=== PATIENT | male | born 1980 ===

== ENCOUNTER 2017-06-29 13:35 | Emergency (ER) | payer MEDICAID, OTHER ==
--- NOTE | 2017-06-29 13:55 | EDM.PDOC ---
ED HPI GENERAL MEDICAL PROBLEM - General Chief Complaint: Upper Extremity Injury/Pain Stated Complaint: RT ELBOW INJURY Time Seen by Provider: 06/29/17 13:55 Source of Information: Reports: Patient - History of Present Illness INITIAL COMMENTS - FREE TEXT/NARRATIVE: Patient is here for evaluation of a right elbow injury. He states that he was taking his dog about approximately one hour prior to arrival at ER when he was lighting a cigarette and not paying attention and he tripped over his small dog that he states that he landed with most of his weight on his right elbow. Patient is able to move his shoulder and elbow on the right side but does have pain with moving the elbow. He is having moderate right elbow pain and significant swelling on the side. Patient does have history of osteogenesis imperfecta as well; frequent fractures more so as a child but he has had several fractures in the past few years. Denies any history of bleeding or clotting disorders. Not on any medication on a daily basis. Right Elbow Pain Score (Numeric/FACES): 3 - Related Data Allergies Allergy/AdvReac Type Severity Reaction Status Date / Time codeine Allergy Other Verified 06/29/17 13:48 Home Meds: Home Meds traMADol HCl [Tramadol HCl] 50 mg PO Q6H PRN #30 tablet 06/29/17 [Rx] Past Medical History Musculoskeletal History: Reports: Other (See Below) Other Musculoskeletal History: osteogenesis- imperfecta - Past Surgical History Musculoskeletal Surgical History: Reports: Other (See Below) Other Musculoskeletal Surgeries/Procedures:: right elbow surgery Social & Family History - Tobacco Use Smoking Status *Q: Current Every Day Smoker Years of Tobacco use: 20 Packs/Tins Daily: 1 - Caffeine Use Caffeine Use: Reports: Coffee, Energy Drinks, Soda - Recreational Drug Use Recreational Drug Type: Reports: Marijuana/Hashish Other Recreational Drug Type: socially Review of Systems - Review of Systems Review Of Systems: See Below Constitutional: Reports: No Symptoms Musculoskeletal: Reports: Joint Pain, Joint Swelling (Right elbow pain and swelling.) Skin: Denies: Erythema, Change in Color Neurological: Denies: Numbness, Paresthesia, Weakness Psychiatric: Reports: No Symptoms ED EXAM, GENERAL - Physical Exam Exam: See Below Exam Limited By: No Limitations General Appearance: Alert, WD/WN, No Apparent Distress Cardiovascular: Other (Capillary refill less than 2 seconds on the right upper extremity.) Peripheral Pulses: 2+: Radial (R) Extremities: Limited Range of Motion (Right elbow), Other (Right shoulder/wrist with normal exam. Right elbow with significant posterior swelling, approximately the size of a tennis ball. He does have limited range of motion of his right elbow due to pain. No ecchymosis or deformity noted.) Neurological: Alert, Oriented, No Motor/Sensory Deficits Psychiatric: Normal Affect, Normal Mood Skin Exam: Warm, Dry, Intact. No: Ecchymosis, Erythema Course - Vital Signs Last Recorded V/S: Last Vital Signs Temp 96.9 F 06/29/17 13:53 Pulse 84 06/29/17 13:53 Resp 20 06/29/17 13:53 BP 133/93 H 06/29/17 13:53 Pulse Ox 98 06/29/17 13:53 - Orders/Labs/Meds Orders: Active Orders 24 hr Category Date Time Status Elbow Min 3V Rt [CR] Stat Exams 06/29/17 14:04 Taken Meds: Medications Discontinued Medications Generic Name Dose Route Start Last Admin Trade Name Aide PRN Reason Stop Dose Admin Ibuprofen 600 mg 06/29/17 14:04 06/29/17 14:12 Motrin PO 06/29/17 14:05 600 mg ONETIME ONE Administration - Re-Assessments/Exams Free Text/Narrative Re-Assessment/Exam: Injury to right elbow with significant posterior swelling/fluid effusion. Patient declines pain medication as he does not tolerate this well, agreeable to ibuprofen. Will get an x-ray of his right elbow. 06/29/17 14:10 Olecranon process significantly. Discussed with Dr. Kim, per his recommendation patient was placed in a long-arm splint and a sling. He will call Saturday morning and to be seen and likely schedule surgery to repair this. Patient was initially placed in splint at 90, he did try to extend elbow repeatedly. Patient was advised to continue to hold his arm at a 90 angle until splint hardened. Patient was also placed in a shoulder sling. Patient hesitant to take pain medication as he has not tolerated these well previously patient was given prescription for tramadol, continue Tylenol as well. Patient advised to avoid NSAIDs due to likely upcoming surgery. 06/29/17 17:59 Departure - Departure Time of Disposition: 14:54 Disposition: Home, Self-Care 01 Condition: Fair Clinical Impression: Fracture of ulna Qualifiers: Encounter type: initial encounter Fracture type: closed Fracture alignment: displaced - Discharge Information Prescriptions: traMADol HCl [Tramadol HCl] 50 mg PO Q6H PRN #30 tablet PRN Reason: Pain Instructions: Ulnar Fracture Referrals: PCP,None [Primary Care Provider] - Forms: ED Department Discharge Additional Instructions: Elevate as much as possible. Ice 15 minutes every 1-2 hours. You may take Tylenol as needed for pain, avoid aspirin or Aleve or ibuprofen. You may take the tramadol once every 6 hours. Follow-up with Dr. Kim/orthopedics on Saturday. You may call to schedule this at [phone]. - My Orders Last 24 Hours: My Active Orders 06/29/17 14:04 Elbow Min 3V Rt [CR] Stat - Assessment/Plan Last 24 Hours: My Active Orders 06/29/17 14:04 Elbow Min 3V Rt [CR] Stat
[2017-06-29] MEDS ORDERED: Ibuprofen 600 MG Tab PO ONE (14:04)
--- NOTE | 2017-07-01 07:25 | CR ---
Right elbow: Four views of the right elbow were obtained. Comparison: No prior elbow exam. Soft tissue swelling is identified. Fracture is identified within the olecranon process with displacement. Deformity of the radial head is seen compatible with old injury. No additional bony abnormality is seen. There is a metallic foreign body projected within the soft tissues of the distal upper extremity. Impression: 1. Displaced olecranon process fracture with soft tissue swelling. 2. Deformity of the radial head as well as metallic foreign body as described above. Diagnostic code #3
== END 2017-06-29 15:05 | disposition home or self-care (01) ==
LOC: JD.ED 13:35
DX: S52.021A Displaced fracture of olecranon process without intraarticular extension of right ulna, initial encounter for closed fracture (principal); F17.210 Nicotine dependence, cigarettes, uncomplicated; Z88.5 Allergy status to narcotic agent; W01.0XXA Fall on same level from slipping, tripping and stumbling without subsequent striking against object, initial encounter
CPT/HCPCS: 29105; 73080; 99284; A9270; 29125; 99283

== ENCOUNTER 2017-07-04 07:58 | Day surgery (SDC) | payer MEDICAID, OTHER ==
[~2017-07-04 07:58] MED LIST: Dexamethasone 4 MG/ML 5 ML MDV ONE; Lactated Ringers 1,000 ML IV SCH; Lidocaine 1% 4 ML ONE; Lidocaine 1%/Sod Bicarbonate in NS 8.4% 1 ML Syringe IV PRN; Midazolam 1 MG/ML 2 ML SDV ONE; Ondansetron 4 MG/2 ML SDV ONE; Propofol 200 MG/20 ML SDV ONE; Rocuronium 50 MG/5 ML Vial ONE; Sodium Chloride 0.9% 10 ML Syringe FLUSH PRN; ceFAZolin 1 GM Vial ONE; fentaNYL 250 MCG/5 ML SDV ONE
[2017-07-04] MEDS ORDERED: Ondansetron 4 MG/2 ML SDV IVPUSH PRN ×2 (08:13→10:34)
[2017-07-04] MEDS ORDERED: Ketorolac 30 MG/ML SDV IVPUSH PRN (08:13)
[2017-07-04] MEDS ORDERED: traMADol 50 MG Tab PO PRN (08:13)
--- NOTE | 2017-07-04 08:44 | PCM.PREANE ---
Preanesthetic Assessment - Procedure Proposed Procedure: ORIF right olecranon fx - Anesthesia/Transfusion/Family Hx Anesthesia History: Prior Anesthesia Without Reaction Family History of Anesthesia Reaction: No Transfusion History: No Prior Transfusion(s) - Review of Systems General: No Symptoms Pulmonary: No Symptoms Cardiovascular: No Symptoms Gastrointestinal: No Symptoms Neurological: No Symptoms Other: Reports: None - Physical Assessment NPO Status Date: 07/03/17 NPO Status Time: 23:45 O2 Sat by Pulse Oximetry: 99 Respiratory Rate: 16 Vital Signs: Last Vital Signs Temp 36.8 C 07/04/17 08:00 Pulse 91 07/04/17 08:00 Resp 16 07/04/17 08:00 BP 114/71 07/04/17 08:00 Pulse Ox 99 07/04/17 08:00 Height: 1.73 m Weight: 57.153 kg ASA Class: 2 Mental Status: Alert & Oriented x3 Airway Class: Mallampati = 1 Dentition: Reports: Normal Dentition Thyro-Mental Finger Breadths: 3 Mouth Opening Finger Breadths: 3 ROM/Head Extension: Full Lungs: Clear to Auscultation, Normal Respiratory Effort Cardiovascular: Regular Rate, Regular Rhythm - Allergies Allergies/Adverse Reactions: Allergies Allergy/AdvReac Type Severity Reaction Status Date / Time codeine Allergy Other Verified 07/03/17 15:43 hydrocodone Allergy Cannot Verified 07/03/17 15:43 Remember - Blood Blood Available: No Product(s) Available: None - Anesthesia Plan Pre-Op Medication Ordered: None - Acknowledgements Anesthesia Type Planned: General Anesthesia Pt an Appropriate Candidate for the Planned Anesthesia: Yes Alternatives and Risks of Anesthesia Discussed w Pt/Guardian: Yes Pt/Guardian Understands and Agrees with Anesthesia Plan: Yes PreAnesthesia Questionnaire - Past Health History Medical/Surgical History: Denies Medical/Surgical History Musculoskeletal History: Reports: Other (See Below) Other Musculoskeletal History: osteogenesis- imperfecta - Past Surgical History Musculoskeletal Surgical History: Reports: Other (See Below) Other Musculoskeletal Surgeries/Procedures:: right elbow surgery - SUBSTANCE USE Smoking Status *Q: Current Every Day Smoker (1ppd for 20 years) Tobacco Use Within Last Twelve Months: Cigarettes Second Hand Smoke Exposure: No Recreational Drug Use History: No Recreational Drug Type: Reports: Marijuana/Hashish (marijuana 07-02-17) - HOME MEDS Home Medications: Home Meds traMADol HCl [Tramadol HCl] 50 mg PO Q6H PRN #30 tablet 06/29/17 [Rx] - CURRENT (IN HOUSE) MEDS Current Meds: Current Medications Lactated Ringer's (Ringers, Lactated) 1,000 mls @ 125 mls/hr IV ASDIRECTED RONALDO Stop: 07/04/17 23:00 Last Admin: 07/04/17 08:20 Dose: 125 mls/hr Ketorolac Tromethamine (Toradol) 30 mg IVPUSH Q6H PRN PRN Reason: Pain (severe 7-10) Stop: 07/04/17 18:00 Lidocaine/Sodium Bicarbonate (Buffered Lidocaine 1% In Ns 8.4%) 0.25 ml IV ONETIME PRN PRN Reason: Prior to IV Start Stop: 07/04/17 18:00 Last Admin: 07/04/17 08:19 Dose: 0.25 ml Morphine Sulfate (Ms Contin) 15 mg PO ONETIME ONE Stop: 07/04/17 08:16 Ondansetron HCl (Zofran) 4 mg IVPUSH Q4H PRN PRN Reason: Nausea/Vomiting Stop: 07/04/17 18:00 Sodium Chloride (Saline Flush) 10 ml FLUSH ASDIRECTED PRN PRN Reason: Keep Vein Open Stop: 07/04/17 18:00 Tramadol HCl (Ultram) 50 mg PO Q6H PRN PRN Reason: Pain Stop: 07/04/17 18:00 Discontinued Medications Cefazolin Sodium (Ancef) Confirm Administered Dose 2 gm .ROUTE .STK-MED ONE Stop: 07/04/17 07:11 Dexamethasone (Dexamethasone) Confirm Administered Dose 20 mg .ROUTE .STK-MED ONE Stop: 07/04/17 07:08 Fentanyl (Sublimaze) Confirm Administered Dose 250 mcg .ROUTE .STK-MED ONE Stop: 07/04/17 07:05 Lidocaine HCl (Xylocaine-Mpf 1%) Confirm Administered Dose 4 mls @ as directed .ROUTE .STK-MED ONE Stop: 07/04/17 07:08 Iodine (Iodine 2% Mild Tincture) Confirm Administered Dose 30 ml .ROUTE .STK- MED ONE Stop: 07/04/17 07:56 Lidocaine/Epinephrine (Xylocaine 1% With Epinephrine 1:100,000) Confirm Administered Dose 20 ml .ROUTE .STK-MED ONE Stop: 07/04/17 07:56 Midazolam HCl (Versed 1 Mg/Ml) Confirm Administered Dose 2 mg .ROUTE .STK-MED ONE Stop: 07/04/17 07:05 Ondansetron HCl (Zofran) Confirm Administered Dose 4 mg .ROUTE .STK-MED ONE Stop: 07/04/17 07:08 Propofol (Diprivan 20 Ml) Confirm Administered Dose 200 mg .ROUTE .STK-MED ONE Stop: 07/04/17 07:05 Rocuronium [place] (Zemuron) Confirm Administered Dose 50 mg .ROUTE .STK-MED ONE Stop: 07/04/17 07:08
[2017-07-04] MEDS: Lidocaine 1% with EPINEPHrine 1:100,000 20 ML MDV ONE ×2 (09:47→10:40)
[2017-07-04] MEDS: Iodine/Sodium Iodide 2% Tincture 30 ML Bottle ONE ×2 (09:48→09:57)
[2017-07-04] MEDS ORDERED: HYDROmorphone 1 MG/ML Syringe ONE (09:57)
[2017-07-04] MEDS ORDERED: Ketamine 500 mg/10 ML MDV ONE (10:10)
[2017-07-04] MEDS ORDERED: Labetalol 100 MG/20 ML MDV ONE (10:33)
[2017-07-04] MEDS ORDERED: HYDROmorphone 0.5 MG/0.5 ML Syringe IVPUSH PRN (10:34)
[2017-07-04] MEDS ORDERED: fentaNYL 100 MCG/2 ML SDV IVPUSH PRN (10:34)
[2017-07-04] MEDS ORDERED: diphenhydrAMINE 50 MG/ML SDV IVPUSH PRN (10:34)
[2017-07-04] MEDS ORDERED: Meperidine PF 50 MG/ML Syringe IVPUSH PRN (10:34)
[2017-07-04] MEDS ORDERED: Neostigmine Methylsulfate 10 MG/10 ML MDV ONE (10:55)
--- NOTE | 2017-07-04 11:09 | PCM.POSTAN ---
POST ANESTHESIA ASSESSMENT - MENTAL STATUS Mental Status: Alert, Oriented - VITAL SIGNS Pulse Rate: 89 SaO2: 98 Resp Rate: 10 Blood Pressure: 136/90 Temperature: 37.5 C - RESPIRATORY Respiratory Status: Respiratory Rate WNL, Airway Patent, O2 Saturation Stable, Supplemental Oxygen - CARDIOVASCULAR CV Status: Pulse Rate WNL, Blood Pressure Stable - GASTROINTESTINAL GI Status: No Symptoms - PAIN Pain Score: 0 - POST OP HYDRATION Hydration Status: Adequate & Stable
[2017-07-04] MEDS ORDERED: Morphine 15 MG Tab.ER PO ONE (11:45)
--- NOTE | 2017-07-04 11:49 | CR ---
Right elbow: Multiple fluoroscopic spot views were obtained utilizing C-arm device in the operating room. Comparison: Previous right elbow study of 06/29/17. Previously described displaced olecranon process fracture shows reduction. Orthopedic hardware is seen on final films affixing the fracture. Fluoroscopy time given as 61.2 seconds. Impression: 1. Reduction and fixation of previously displaced olecranon process fracture. Diagnostic code #2
--- NOTE | 2017-07-04 14:02 | OR ---
DATE OF OPERATION: 07/04/2017 SURGEON: Kirit Quintana MD PREOPERATIVE DIAGNOSIS: 1. Displaced right olecranon fracture. 2. Osteogenesis imperfecta bone deformity, right elbow. POSTOPERATIVE DIAGNOSIS: 1. Displaced right olecranon fracture. 2. Osteogenesis imperfecta bone deformity, right elbow. ANESTHESIA: General. OPERATION PERFORMED: Open reduction and internal fixation of olecranon fracture, right elbow, by tension band wiring. DESCRIPTION OF PROCEDURE: The patient was taken to the operative room in a supine position and was placed under a general anesthesia. The right upper extremity was then prepped and draped by standard technique. After prepping and draping, the operation proceeded with an incision being placed over the central area of the olecranon region of the right elbow with a sharp incision being carried through the skin to subcutaneous tissues, coming down on the quadriceps tendon mechanism, the olecranon fragment that was displaced proximally, and then paralleling over the top of the ulnar bone. Once the distal and proximal fracture fragments were identified, a thorough irrigation and debridement was carried out of the joint and the fracture hematoma once that was removed from the joint area and also on the bone surfaces. The operation then proceeded with reduction of the fracture. The fracture was then held in place with a tenaculum and two 2.0 mm Steinmann pins were inserted in a parallel fashion through the proximal fragment and into the distal portion of the ulna for the beginning of the tension band wiring. Once those were in place, these were checked using fluoroscopy. The operation proceeded with a drill hole being placed approximately 1 inch distal to the fracture site. The wire, being a 1.25 wire, was then inserted through the drill hole and then a [id number] configuration was made coming around the proximal ends of the wires that were extending from the proximal olecranon fracture. With the olecranon fracture reduced, the operation proceeded with tightening of the [id number] wire construct to secure the fracture reduction. The K-wires were then bent and placed over the wire and impacted into the proximal fragment to secure the wire configuration and reduction of the fracture. Once that was completed, hard copy x-rays were taken and the final construct was reviewed with fluoroscopy and found to be satisfactory with good reduction of the fracture. The operation proceeded with irrigation of the soft tissues. The deep tissue was closed with #1 Vicryl. The major portion of the wound was then closed with 2-0 Vicryl and 3-0 Vicryl. Skin tashia were used for closure of the skin. A padded long-arm cast was applied, which was windowed, for approach later for removal of the skin sutures. Once that was all complete, the patient tolerated this whole procedure well. He left the operating room in a stable condition to his room for recovery. ESTIMATED BLOOD LOSS: MMODAL /[id number]
== END 2017-07-04 13:05 | disposition home or self-care (01) ==
LOC: JD.SDS 07:58
PROVIDERS: ATTEND Specialist
DX: S52.021A Displaced fracture of olecranon process without intraarticular extension of right ulna, initial encounter for closed fracture (principal); F17.210 Nicotine dependence, cigarettes, uncomplicated; Q78.0 Osteogenesis imperfecta; W01.0XXA Fall on same level from slipping, tripping and stumbling without subsequent striking against object, initial encounter; Z88.5 Allergy status to narcotic agent; Z88.6 Allergy status to analgesic agent
CPT/HCPCS: 24685; 76000; A9270; C1713; J0690; J1100; J1170; J2250; J2405; J2710; J3010; J7120; 01740; J2704